=== PATIENT | male | born 1970 | race Caucasian/White ===

== ENCOUNTER → 2017-01-21 | Outpatient (CLI) | payer BC ==
--- NOTE | 2017-01-21 12:50 | CR ---
EXAMINATION: Right elbow HISTORY: Pain COMPARISON: None TECHNIQUE: 3 views FINDINGS/IMPRESSION: There is no acute osseous abnormality, dislocation, or fracture identified. Bon e mineralization and joint spaces appear normal. No soft tissue swelling or joint effusion.
== END ==
LOC: MW.CHORTHO 07:37
PROVIDERS: ATTEND Physician Assistant
DX: M25.521 Pain in right elbow (principal)
CPT/HCPCS: 73080-26-RT; 73080-RT

== ENCOUNTER 2021-03-03 07:16 | Emergency (ER) | payer BC ==
[2021-03-03] MEDS ORDERED: Hydrocortisone 2.5% Crm 30 GM Tube TOP STA (08:22)
[2021-03-03] MEDS ORDERED: HYDROmorphone 1 MG/ML Syringe IM ONE (08:57)
[2021-03-03] MEDS ORDERED: Ondansetron 4 MG Tab.DIS PO ONE (08:57)
--- NOTE | 2021-03-03 09:42 | EDM.PDOC ---
ED HPI GENERAL MEDICAL PROBLEM - General Chief Complaint: Gastrointestinal Problem Stated Complaint: HEMORRHOID Time Seen by Provider: 03/03/21 08:42 - History of Present Illness INITIAL COMMENTS - FREE TEXT/NARRATIVE: HISTORY AND PHYSICAL: History of present illness: This is a 50-year-old gentleman with no significant past medical history who presents ER today secondary to hemorrhoidal pain that started in the middle the night. Patient reports that yesterday evening while he was taking a shower he felt his hemorrhoids popping out. He reports he was able to self reduce it but they came back out again. Patient reports that he woke up in the middle night in severe excruciating pain secondary to his hemorrhoids. Patient denies any recent fevers, shakes, chills, nausea, vomiting, diarrhea, dysuria, frequency, urgency. Patient reports he has had hemorrhoids in the past but never have had them where they have hurt this bad. Patient reports he is never seek surgical attention for them. Patient denies any anal trauma, constipation, history of liver disease or alcohol abuse. Patient reports he had normal bowel movements. Patient reports normal diet. Patient reports he has not been straining or doing any heavy lifting. Patient reports that he works in the [employer] and does not do significant sitting. Patient denies any other bleeding or problems. Review of systems: As per history of present illness and below otherwise all systems reviewed and negative. Past medical history: As per history of present illness and as reviewed below otherwise noncontributory. Surgical history: As per history of present illness and as reviewed below otherwise noncontributory. Social history: No reported history of drug abuse. Family history: As per history of present illness and as reviewed below otherwise noncontributory. Physical exam: This patient was seen and evaluated during the 2019 SARS-CoV-2 novel coronavirus pandemic period. Community viral transmission is ongoing at time of this encounter and the emergency department is operating under pandemic response procedures. Constitutional: Patient is oriented to person, place, and time. Appears well- developed and well-nourished. No distress. HEENT: Moist mucous membranes Head: Normocephalic and atraumatic Eyes: Right eye exhibits no discharge. Left eye exhibits no discharge. No scleral icterus Neck: Normal range of motion. No tracheal deviation present. Cardiovascular: Normal rate and regular rhythm. Pulmonary: Effort normal, no respiratory distress. Abdominal: No distention Musculoskeletal: Normal range of motion Neurologic: Alert and oriented to person, place and time. Skin: [place], warm and dry. Psychiatric: Normal mood and affect. Behavior is normal. Judgment and thought content normal. Nursing note and vital signs have been reviewed Patient's ER physical exam is significant for a large nonthrombosed hemorrhoid at the 9 o'clock position. Extremely tender to palpation but easily reduced in the ED. Despite reduction in the ED, with any kind of coughing or straining, the patient reports that his hemorrhoid pops right back out again. I have reduced the hemorrhoid multiple times in the ED for him and applied Anusol HC cream in the ED. Diagnostics: [] Therapeutics: [] Assessment and plan: 50-year-old gentleman who presents ER today with a nonthrombosed external hemorrhoid that is tender to palpation that is easily reduced but prolapses back out with any straining in the ED. Anusol HC cream was applied to the hemorrhoid. Patient does feel better in the ED after reduction. It is easily reducible at this time. Patient was given Dilaudid 1 mg IM to assist with pain and discomfort. Patient will be discharged home and will be assisted with obtaining a surgical referral with our general surgeon on-call for definitive management of his external hemorrhoid. There is no active bleeding at this time. I have instructed the patient regarding high-fiber diet over the next several days as well as prescription for pain medicines. Patient will also be given a prescription for Anusol suppositories to assist with inflammation. Reassessment at the time of disposition demonstrates that the patient is in no acute distress. The patient has remained stable throughout the entire ED visit and is without objective evidence for acute process requiring urgent intervention or hospitalization. The patient is stable for discharge, counseling is provided as documented above, discussed symptomatic treatment and specific conditions for return. I have spoken with the patient/caregiver and discussed todays findings, in addition to providing specific details for the plan of care. Questions are answered and there is agreement with the plan. Definitive disposition and diagnosis as appropriate pending reevaluation and review of above. rectal Pain Score (Numeric/FACES): 10 - Related Data Allergies Allergy/AdvReac Type Severity Reaction Status Date / Time No Known Allergies Allergy Verified 03/03/21 07:45 Home Meds: Home Meds Hydrocodone/Acetaminophen [Hydrocodone-Acetamin 5-325 mg] 1 each PO Q6HR PRN #14 tab 03/03/21 [Rx] Hydrocortisone Acetate [Anusol-Hc] 25 mg RC TID PRN #12 supp.rect 03/03/21 [Rx] Ibuprofen 600 mg PO Q6HR PRN #30 tablet 03/03/21 [Rx] buPROPion HCL [Bupropion Xl] 300 mg PO DAILY 03/03/21 [History] Past Medical History - Past Health History Medical/Surgical History: Denies Medical/Surgical History - Infectious Disease History Infectious Disease History: Reports: Chicken Pox Social & Family History - Recreational Drug Use Recreational Drug Use: No ED ROS GENERAL - Review of Systems Review Of Systems: See Below ED EXAM, GENERAL - Physical Exam Exam: See Below Course - Vital Signs Last Recorded V/S: Last Vital Signs Temp 96.6 F L 03/03/21 07:45 Pulse 77 03/03/21 07:45 Resp BP 145/87 H 03/03/21 07:45 Pulse Ox 97 03/03/21 07:45 - Orders/Labs/Meds Meds: Medications Discontinued Medications Generic Name Dose Route Start Last Admin Trade Name Freq PRN Reason Stop Dose Admin Hydrocortisone 0 gm 03/03/21 08:22 03/03/21 08:45 Hydrocortisone 2.5% Crm 30 Gm Tube TOP 03/03/21 08:23 1 gm ONETIME STA Administration Hydromorphone HCl 1 mg 03/03/21 08:57 03/03/21 09:11 Hydromorphone 1 Mg/Ml Syringe IM 03/03/21 08:58 1 mg ONETIME ONE Administration Ondansetron HCl 4 mg 03/03/21 08:57 03/03/21 09:11 Ondansetron 4 Mg Tab.Dis PO 03/03/21 08:58 4 mg ONETIME ONE Administration Departure - Departure Time of Disposition: 10:00 Disposition: Home, Self-Care 01 Condition: Good Clinical Impression: Hemorrhoids, external - Discharge Information Instructions: Surgical Procedures for Hemorrhoids, Hemorrhoids Referrals: Ani Talley MD [Primary Care Provider] - Additional Instructions: You were seen and evaluated in ER today secondary to your hemorrhoids. Your hemorrhoids are easily reduced with applying constant gentle pressure. Please continue to apply gentle pressure whenever your hemorrhoid should pop out. You will be given steroid cream to take as well as a prescription for steroid suppositories to use when the cream is out. Please make sure that you drink plenty of liquids and eat plenty of fiber so that you are not constipated. Avoid utilizing the toilet for a long period of time. You will assist you with obtaining a referral to a surgeon to see you to assist you with your hemorrhoid. You were also given a prescription for ibuprofen as well as [place] to help you with your pain. As we discussed, [place] will cause constipation so make sure you drink plenty of fluids, eat plenty of fruits and vegetables such as watermelon and grapes when you are utilizing [place] to help your stools stay loose so you are not straining. Please avoid working with any heavy equipment while you are using [place]. [facility] [place] - General Surgery [address], [address] [place] [address] The following information is given to patients seen in the emergency department who are being discharged to home. This information is to outline your options for follow-up care. We provide all patients seen in our emergency department with a follow-up referral. The need for follow-up, as well as the timing and circumstances, are variable depending upon the specifics of your emergency department visit. If you don't have a primary care physician on staff, we will provide you with a referral. We always advise you to contact your personal physician following an emergency department visit to inform them of the circumstance of the visit and for follow-up with them and/or the need for any referrals to a consulting specialist. The emergency department will also refer you to a specialist when appropriate. This referral assures that you have the opportunity for follow-up care with a specialist. All of these measure are taken in an effort to provide you with optimal care, which includes your follow-up. Under all circumstances we always encourage you to contact your private physician who remains a resource for coordinating your care. When calling for follow-up care, please make the office aware that this follow-up is from your recent emergency room visit. If for any reason you are refused follow-up, please contact the [facility] Emergency Department at and asked to speak to the emergency department charge nurse. [facility] - Primary Care [address] [place] [id number] [facility] [address] [place] [id number] Sepsis Event Note (ED) - Evaluation Sepsis Screening Result: No Definite Risk - Focused Exam Vital Signs: Vital Signs Temp Pulse BP Pulse Ox 03/03/21 07:45 96.6 F L 77 145/87 H 97
== END 2021-03-03 10:33 | disposition home or self-care (01) ==
LOC: MW.ED 07:16
DX: K64.4 Residual hemorrhoidal skin tags (principal)
CPT/HCPCS: 96372; 99282; A9270; J1170; 99283